=== PATIENT | male | born 1980 | race Caucasian/White ===

== ENCOUNTER 2016-08-15 19:35 | Emergency (ER) | payer OTHER ==
[2016-08-15 22:29] VITALS: BP 125/82
== END 2016-08-15 22:29 | disposition home or self-care (01) ==
LOC: ED 19:35
DX: E10.65 Type 1 diabetes mellitus with hyperglycemia (principal); Z79.4 Long term (current) use of insulin
CPT/HCPCS: J1815

== ENCOUNTER 2016-09-12 00:22 | Emergency (ER) | payer OTHER ==
[~2016-09-12] VITALS: Ht 175.3 cm; Wt 76.7 kg
[2016-09-12 05:10] VITALS: BP 115/76
== END 2016-09-12 05:10 | disposition home or self-care (01) ==
LOC: ED 00:22
DX: E11.65 Type 2 diabetes mellitus with hyperglycemia (principal); Z79.4 Long term (current) use of insulin
CPT/HCPCS: Q0162

== ENCOUNTER 2016-11-16 02:33 | Emergency (ER) | payer OTHER ==
[~2016-11-16] VITALS: Ht 175.3 cm; Wt 79.4 kg
[2016-11-16 04:36] VITALS: BP 124/75
== END 2016-11-16 04:12 | disposition home or self-care (01) ==
LOC: ED 02:33
DX: S93.402A Sprain of unspecified ligament of left ankle, initial encounter (principal); S63.502A Unspecified sprain of left wrist, initial encounter; S83.92XA Sprain of unspecified site of left knee, initial encounter; W18.30XA Fall on same level, unspecified, initial encounter; Y93.89 Activity, other specified; Y99.8 Other external cause status; Y92.89 Other specified places as the place of occurrence of the external cause
CPT/HCPCS: Q0092

== ENCOUNTER 2019-08-15 13:36 | Emergency (ER) | payer OTHER, SELFPAY ==
[~2019-08-15] VITALS: Ht 175.3 cm; Wt 76.2 kg
[2019-08-15 13:48] VITALS: BP 135/89; Ht 175.3 cm; Wt 76.2 kg
== END 2019-08-15 15:39 | disposition home or self-care (01) ==
LOC: ED 13:36
DX: U07.1 COVID-19 (principal); E11.9 Type 2 diabetes mellitus without complications; M25.561 Pain in right knee; M25.562 Pain in left knee
CPT/HCPCS: 82962; J1885; U0003-CS